=== PATIENT | female | born 1995 | race Caucasian/White ===

== ENCOUNTER 2024-06-22 12:01 | Outpatient (AMB) | payer BC, SELFPAY ==
[2024-06-22 12:26] VITALS: BP 118/72; PULSE 79; TEMP 36.8; O2SAT 98; BMI 44.5
--- NOTE | 2024-06-22 12:26 | MHC.OFFWIV ---
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 Intake Note: pt is here for possible ear infection, causing ear and jaw pain Patient Tobacco Use Status: Never used Tobacco Accompanied by: Self / Same As Patient Allergies Sulfa (Sulfonamide Antibiotics) Allergy (Mild, Verified 06/22/24 12:27) Hives Do you need a note to return to daycare/school/sports/work: No HPI HPI Comments History of Present Illness Details Patient presents to office with ear pain Few days ago L ear pain She thought just needing popping due to long car ride Last night worsening L sided ear pain This am thought swelling L ear/side of face Unsure if teeth or ear No fever or chills Only other symptoms sore throat PFSH Social History Patient Tobacco Use Status: Never used Tobacco Review of Systems Const Denies chills and Denies fever(s) Eyes Denies change in vision ENT Denies dysphagia, Reports otalgia, Denies nasal discharge, Denies sinus pressure, Reports sore throat, Denies throat swelling and Denies tongue swelling Card Denies chest pain and Denies dyspnea Resp Denies cough and Denies dyspnea GI Denies dysphagia Skin/Breast Denies rash and Denies wounds Aller/Immun Denies throat swelling and Denies tongue swelling Physical Exam Vital Signs: Last Vital Signs Temp 98.2 F 06/22/24 12:26 Pulse 79 06/22/24 12:26 BP 118/72 06/22/24 12:26 Pulse Ox 98 06/22/24 12:26 BMI result Body Mass Index 44.5 General: Non-toxic, NAD. Speaking full sentences. Skin: Warm dry throughout. Poterior L ear has area of slight erythema without vesicles, skin break down or petechiae. No induration or fluctuance. Eye: EOMI HENT: Airway patent. Uvula midline. No pharyngeal erythema or edema. 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 No palpable L lateral gingival abscess or induration. No sublingual or submandibular edema, tenderness or induration Bilateral canals clear. TM non-erythematous, non-bulging. No TM perforation or hemotympanum noted. No mastoid bone tenderness bilaterally Respiratory: No respiratory distress Lymph: No lymphadenopathy tonsillar, submental, submandibular anterior/posterior cervical chain MSK: Full ROM extremities. Neurology: A/O. No aphasia or facial droop. Gait without abnormality Psych: Good mood and affect Assessment & Plan Assessment & Plan (1) Cellulitis: Code(s): L03.90 - Cellulitis, unspecified Qualifiers: Site of cellulitis: face Qualified Code(s): L03.211 - Cellulitis of face Plan: Patient seen and evaluated. Will cover with keflex No OM or OE noted. No mastoid tenderness No oral abscess Head elevation, antibiotics and motrin Patient gave verbal understanding and had no additional questions or concerns at time of discharge All questions answered Medications: New cephalexin 500 mg PO BID 10 caps 0RF Coding Level of Care Code New Pt Level 3 (94207) Diagnoses Cellulitis of face L03.211 Site of cellulitis: face
== END 2024-06-22 13:33 | disposition home or self-care (01) ==
PROVIDERS: Visit Provider Physician Assistant
DX: L03.211 Cellulitis of face (principal)

== ENCOUNTER → 2024-06-22 12:01 | Outpatient (BNVA) | payer BC, SELFPAY | DX: L03.211 Cellulitis of face (principal) ==